=== PATIENT | male | born 1970 | race Caucasian/White ===

== ENCOUNTER 2021-12-02 19:21 | Emergency (ER) | payer OTHER ==
[2021-12-02 20:12] LABS: BASOPHIL 0.4 % (0-2); EOSINOPHIL 0.8 % (0-5); HCT 46.6 % (42.0-52.0); HGB 16.2 g/dl (13.2-18.0); LYMPHOCYTE 28.6 % (15-48); MCH 30.6 pg (25.0-31.0); MCHC 34.8 g/dL (32.0-36.0); MCV 87.9 fL (78.0-100.0); MONOCYTE 4.9 % (0-12); MPV 9.6 fL (6.0-9.5); NEUTROPHIL 64.7 % (41-80); NRBC 0; PLT 218 K/uL (150-400); RDW 12.7 % (11.5-14.0); WBC 7.2 K/uL (4.0-10.5)
[2021-12-02 20:21] LABS: INR 1.04 (0.9-1.2); PTT 27.5 SECONDS (24.4-34.7)
[2021-12-02 20:33] LABS: ALBUMIN 4.1 g/dL (3.4-5.0); BILIRUBIN - TOTAL 0.4 mg/dL (0.2-1.0); BUN/CREAT RATIO (CALC) 26.4 RATIO; CREATININE 0.87 mg/dL (0.67-1.17); POTASSIUM 3.8 mmol/L (3.5-5.1); TOTAL PROTEIN 7.1 g/dL (6.4-8.2)
[2021-12-02 20:48] LABS: CORONAVIRUS 2019 SARS-COV-2 NEGATIVE (NEGATIVE); INFLUENZA A NAA NEGATIVE (NEGATIVE)
[2021-12-03] MEDS ORDERED: PROTONIX 40MG T40 MG PO (00:50)
[2021-12-03] MEDS ORDERED: MEDROL 4MG DOSEP4 MG PO (00:50)
[2021-12-03] MEDS ORDERED: NORCO 5-325 TA1 EACH PO (02:23)
== END 2021-12-03 01:47 | disposition home or self-care (01) ==
LOC: FER 19:21
PROVIDERS: Surgery
DX: R07.89 Other chest pain (principal); F17.210 Nicotine dependence, cigarettes, uncomplicated; Z20.822 Contact with and (suspected) exposure to COVID-19
CPT/HCPCS: 36415; 71045; 80053; 83690; 84484; 85025; 85610; 85730; 93005; 94640; 94664; J1885; J2930; U0002